=== PATIENT | male | born 1990 | race Caucasian/White ===

== ENCOUNTER → 2020-12-31 | Outpatient (CLI) | payer SELFPAY | LOC: M LABSMTC 09:52 | PROVIDERS: ATTEND Pediatrics | DX: Z20.822 Contact with and (suspected) exposure to COVID-19 (principal) ==

== ENCOUNTER → 2021-01-19 | Outpatient (CLI) | payer SELFPAY | LOC: M LABSMTC 12:03 | PROVIDERS: ATTEND Pediatrics | DX: Z11.52 Encounter for screening for COVID-19 (principal) ==

== ENCOUNTER → 2021-02-22 | Outpatient (CLI) | payer SELFPAY | LOC: M LABSMTC 11:58 | PROVIDERS: ATTEND Pediatrics | DX: Z20.822 Contact with and (suspected) exposure to COVID-19 (principal) ==

== ENCOUNTER → 2021-06-10 | Outpatient (CLI) | payer OTHER ==
--- NOTE | 2021-06-10 14:54 | REP ---
INDICATION: OLECRANON BURSITIS COMPARISON: None. TECHNIQUE: Four views right elbow. FINDINGS: There is no evidence of acute fracture, dislocation, or intrinsic bone disease.Moderate soft tissue swelling over the olecranon is most consistent with olecranon bursitis. IMPRESSION: Findings compatible with olecranon bursitis. <Electronically signed by Arvind Light > 06/10/21 [id number]
== END ==
LOC: M SOG 14:25
PROVIDERS: ATTEND Orthopaedic Surgery Sports Medicine
DX: M70.21 Olecranon bursitis, right elbow (principal)

== ENCOUNTER → 2022-05-02 | Outpatient (CLI) | payer BC, OTHER, SELFPAY | LOC: M SOG 09:07 | PROVIDERS: ATTEND Orthopaedic Surgery Hand Surgery | DX: M70.21 Olecranon bursitis, right elbow (principal) ==

== ENCOUNTER → 2022-05-16 | Outpatient (CLI) | payer BC, OTHER ==
[~2022-05-16] MED LIST: OXYC1TAB23 PO
== END ==
LOC: M LABSMTC 10:12
PROVIDERS: ATTEND Anesthesiology
DX: Z20.828 Contact with and (suspected) exposure to other viral communicable diseases (principal); Z11.59 Encounter for screening for other viral diseases

== ENCOUNTER 2022-05-18 12:25 | Day surgery (SDC) | payer BC ==
[~2022-05-18] VITALS: Ht 190.5 cm; Wt 126.5 kg
[2022-05-18] MEDS ORDERED: LR 1,000 ML IV SCH ×3 (12:35→17:45)
[2022-05-18] MEDS ORDERED: ceFAZolin SOD 2 GM in IV 1 EA IV ONE (12:55)
[2022-05-18] MEDS ORDERED: ceFAZolin SOD 1 GM in D5W MINI-BAG PLUS 50 ML IV ONE (12:55)
[2022-05-18] MEDS ORDERED: propofoL 200 MG/20 ML VIAL As Ordered ONE ×2 (13:39→15:16)
[2022-05-18] MEDS ORDERED: LIDOCAINE PRES-FREE 2% 10ML AMP As Ordered ONE (13:39)
[2022-05-18] MEDS ORDERED: MIDAZOLAM INJ 2MG/2ML VIAL (J2250 PER 1MG) As Ordered ONE (13:39)
[2022-05-18] MEDS ORDERED: fentaNYL 100 MCG/2 ML INJECTION As Ordered ONE ×2 (13:40→15:48)
[2022-05-18] MEDS ORDERED: ROCURONIUM BROMIDE 50 MG/5 ML VIAL As Ordered ONE (14:23)
[2022-05-18] MEDS ORDERED: BACITRACIN OINTMENT 30GM TUBE As Ordered ONE (15:17)
[2022-05-18] MEDS ORDERED: BUPIVACAINE HCL 0.25% 30ML VIAL As Ordered ONE (15:17)
[2022-05-18] MEDS ORDERED: dexameTHASONE 4 MG/ML 1ML VIAL (J1100 PER 1MG) As Ordered ONE (15:42)
[2022-05-18] MEDS ORDERED: ACETAMINOPHEN 1000MG 100ML IV BTL (OFIRMEV) (J0131 PER 10MG) As Ordered ONE (15:49)
[2022-05-18] MEDS ORDERED: KETOROLAC 60MG 2ML VIAL As Ordered ONE (15:49)
[2022-05-18] MEDS ORDERED: ONDANSETRON 4MG 2ML VIAL As Ordered ONE (15:49)
[2022-05-18] MEDS ORDERED: oxyCODONE 5MG TAB PO PRN ×2 (17:15→17:45)
[2022-05-18] MEDS ORDERED: ONDANSETRON 4MG 2ML VIAL IV PRN ×2 (17:15→17:45)
[2022-05-18] MEDS ORDERED: fentaNYL 100 MCG/2 ML INJECTION IV PRN ×2 (17:15→17:45)
[2022-05-18] MEDS ORDERED: MORPHINE 2 MG/ML 1ML VIAL IV PRN (17:45)
[2022-05-18 17:47] LABS: CRYSTALS, BODY FLUID URIC ACID (NONE SEEN); SOURCE, BODY FLUID CRYSTALS RT ELBOW
[2022-05-18 17:55] LABS: SOURCE, BODY FLUID RT ELBOW; SYNOVIAL FLUID COLOR PALE YELLOW (COLORLESS)
[2022-05-18 18:30] VITALS: BP 148/99
[2022-05-18] MEDS ORDERED: OXYC1TAB23 PO (19:36)
== END 2022-05-18 19:03 | disposition home or self-care (01) ==
LOC: M SDC 12:25
PROVIDERS: ATTEND Orthopaedic Surgery Hand Surgery
DX: M70.21 Olecranon bursitis, right elbow (principal); F17.220 Nicotine dependence, chewing tobacco, uncomplicated
CPT/HCPCS: 24105; 87070; 87075; 87205; 88300; 88304; 89051; 89060; J0131; J0690; J1100; J1885; J2250; J2405; J3010

== ENCOUNTER → 2022-08-26 | Outpatient (REF) | payer BC ==
[2022-08-26 13:45] LABS: SEMEN APPEARANCE OPAQUE (OPAQUE); SEMEN VISCOSITY LIQUID (LIQUID); SEMEN pH 8.5 (7.0-8.0); WBC CONCENTRATION <=1 M/ml (<=1 M/ml)
[2022-08-26 13:46] LABS: SPERM CONCENTRATION 56.6 M/ml (>=15.0)
== END ==
LOC: M LAB REF 13:12
PROVIDERS: ATTEND Physician Assistant
DX: Z31.41 Encounter for fertility testing (principal)

== ENCOUNTER → 2022-10-03 | Outpatient (REF) | payer BC ==
[2022-10-03 16:41] LABS: SEMEN APPEARANCE OPAQUE (OPAQUE); SEMEN VOLUME 1.6 ml (2.0-5.0)
[2022-10-03 16:42] LABS: SEMEN VISCOSITY LIQUID (LIQUID); WBC CONCENTRATION <=1 M/ml (<=1 M/ml)
== END ==
LOC: M LAB REF 16:30
PROVIDERS: ATTEND Physician Assistant
DX: N46.9 Male infertility, unspecified (principal)

== ENCOUNTER → 2022-10-11 | Outpatient (REF) | payer BC ==
[2022-10-11 12:34] LABS: BASO % 0.4 % (0.0-1.0); EOS # 0.2 10^3/uL (0.0-0.5); EOS % 2.2 % (0.0-3.0); HEMATOCRIT 47.8 % (42.0-52.0); HEMOGLOBIN 15.6 g/dl (13.5-17.5); LYMPH # 2.4 10^3/uL (1.5-5.0); LYMPH % 31.2 % (24.0-44.0); MEAN CORPUSCULAR HEMOGLOBIN 28.3 pg (27.0-33.0); MEAN CORPUSCULAR HGB CONC 32.6 g/dl (32.0-36.5); MEAN CORPUSCULAR VOLUME 86.8 fl (80.0-96.0); MONO # 0.6 10^3/uL (0.0-0.8); MONO % 8.1 % (2.0-8.0); NEUTROPHILS # 4.4 10^3/uL (1.5-8.5); NEUTROPHILS % 57.6 % (36.0-66.0); PLATELET COUNT, AUTOMATED 294 10^3/uL (150-450); RED BLOOD COUNT 5.51 10^6/uL (4.30-6.10); WHITE BLOOD COUNT 7.6 10^3/uL (4.0-10.0)
[2022-10-11 13:50] LABS: ALBUMIN 4.5 G/DL (3.2-5.2); ALT/SGPT 41 U/L (7.0-40); BILIRUBIN,TOTAL 0.7 MG/DL (0.3-1.2); BLOOD UREA NITROGEN 15 MG/DL (9-23); CARBON DIOXIDE LEVEL 25 MMOL/L (20-31); CHLORIDE LEVEL 103 MMOL/L (98-107); CHOLESTEROL LEVEL 201 MG/DL (<200); CHOLESTEROL RISK RATIO 5.02 (<5); CREATININE FOR GFR 1.14 MG/DL (0.70-1.30); GLOMERULAR FILTRATION RATE > 60.0 (>60); GLUCOSE, FASTING 112 MG/DL (60-100); NON-HDL-C 161 MG/DL; POTASSIUM SERUM 4.9 MMOL/L (3.5-5.1); SODIUM LEVEL 138 MMOL/L (136-145); TOTAL 25(OH) VITAMIN D 19.3 NG/ML (20.0-100.0); TOTAL PROTEIN 7.7 G/DL (5.7-8.2); TRIGLYCERIDES LEVEL 180 MG/DL (<150); URIC ACID 10.3 MG/DL (3.7-9.2)
== END ==
LOC: M WUC 09:22
PROVIDERS: ATTEND Physician Assistant
DX: E78.2 Mixed hyperlipidemia (principal); E55.9 Vitamin D deficiency, unspecified; M10.021 Idiopathic gout, right elbow

== ENCOUNTER 2024-04-06 13:56 | Emergency (ER) | payer BC ==
[~2024-04-06] VITALS: Ht 190.5 cm; Wt 125.5 kg
[2024-04-06] MEDS ORDERED: COLC0.6T47 (14:12)
[2024-04-06] MEDS ORDERED: IBUP200C28 PO (14:12)
[2024-04-06] MEDS: NITROGLYCERIN 0.4MG SUBL TABLET SL PRN (14:43)
[2024-04-06] MEDS ORDERED: ISOVUE-370 76% 100ML VIAL As Ordered ONE (14:43)
[2024-04-06 14:48] LABS: BASO % 0.3 % (0.0-1.0); EOS % 0.3 % (0.0-3.0); HEMATOCRIT 47.3 % (42.0-52.0); HEMOGLOBIN 16.4 g/dl (13.5-17.5); LYMPH # 1.6 10^3/uL (1.5-5.0); LYMPH % 10.7 % (24.0-44.0); MEAN CORPUSCULAR HEMOGLOBIN 28.6 pg (27.0-33.0); MEAN CORPUSCULAR HGB CONC 34.7 g/dl (32.0-36.5); MEAN CORPUSCULAR VOLUME 82.4 fl (80.0-96.0); MONO # 0.7 10^3/uL (0.0-0.8); NEUTROPHILS # 12.3 10^3/uL (1.5-8.5); NEUTROPHILS % 83.2 % (36.0-66.0); PLATELET COUNT, AUTOMATED 275 10^3/uL (150-450); RED BLOOD COUNT 5.74 10^6/uL (4.30-6.10); WHITE BLOOD COUNT 14.8 10^3/uL (4.0-10.0)
[2024-04-06 14:54] LABS: INR 1.09; PROTHROMBIN TIME 13.8 SECONDS (12.5-14.5)
[2024-04-06 15:03] LABS: THYROID STIMULATING HORMONE 1.042 uIU/ML (0.55-4.78)
[2024-04-06 15:13] LABS: ALBUMIN 4.7 G/DL (3.2-5.2); ALKALINE PHOSPHATASE 108 U/L (46-116); ALT/SGPT 63 U/L (7.0-40); AST/SGOT 53 U/L (<34); BILIRUBIN,DIRECT 0.2 MG/DL (<0.4); BILIRUBIN,TOTAL 0.8 MG/DL (0.3-1.2); BLOOD UREA NITROGEN 15 MG/DL (9-23); CALCIUM LEVEL 10.1 MG/DL (8.5-10.1); CARBON DIOXIDE LEVEL 23 MMOL/L (20-31); CHLORIDE LEVEL 105 MMOL/L (98-107); CPK CREATINE PHOSPHOKINASE 457 U/L (46-171); CREATININE FOR GFR 1.16 MG/DL (0.70-1.30); GLOMERULAR FILTRATION RATE > 60.0 (>60); GLUCOSE, FASTING 120 MG/DL (60-100); LIPASE 28 U/L (12-53); MB/CK RELATIVE INDEX 0.87 (< OR =4); POTASSIUM SERUM 5.1 MMOL/L (3.5-5.1); SODIUM LEVEL 139 MMOL/L (136-145); TOTAL PROTEIN 8.1 G/DL (5.7-8.2)
[2024-04-06] MEDS: diphenhydrAMINE 50MG/ML VIAL IV STA (15:19)
[2024-04-06] MEDS: methylPREDNISolone 125MG 2ML VIAL IV ONE (15:19)
[2024-04-06] MEDS: ASPIRIN 81MG CHEW TABLET PO ONE (15:31)
[2024-04-06 15:49] VITALS: BP 192/111
[2024-04-06] MEDS: NITROGLYCERIN 2% OINT 1 GM *U/D* PKT TOP ONE (15:49)
[2024-04-06 16:14] LABS: CK-MB VALUE MASS 7.9 NG/ML (<3.6)
[2024-04-06 16:18] LABS: MB/CK RELATIVE INDEX 1.79 (< OR =4)
[2024-04-06] MEDS ORDERED: HOME MED LIST COMPLETE! XX SCH (16:45)
[2024-04-06 16:55] LABS: PARTIAL THROMBOPLASTIN TIME 25.3 SECONDS (24.8-34.2)
[2024-04-06] MEDS: HEPARIN DRIP 25,000 UNITS in IV 1 EA IV SCH (16:59)
[2024-04-06] MEDS: HEPARIN SOD (PORCINE) 5000UNITS/ML 1ML VIAL/SYRINGE IV ONE (17:00)
[2024-04-06 17:15] VITALS: BP 157/87; TEMP 98.6; O2SAT 98
[2024-04-06] MEDS: MORPHINE 4 MG/ML 1ML VIAL IV PRN (17:23)
== END 2024-04-06 17:27 | disposition short-term general hospital (02) ==
LOC: M ED 13:56
DX: I21.4 Non-ST elevation (NSTEMI) myocardial infarction (principal); F10.10 Alcohol abuse, uncomplicated; Z88.2 Allergy status to sulfonamides; Z79.1 Long term (current) use of non-steroidal anti-inflammatories (NSAID)
CPT/HCPCS: 71045; 71275; 80047; 80048; 80076; 82550; 82553; 83690; 84443; 84484; 85025; 85610; 85730; 93005; 93041; 94760; 96374; 96375; 99285; J1200; J2919; Q9967

== ENCOUNTER → 2024-07-29 | Outpatient (REF) | payer BC ==
[~2024-07-29] MED LIST changes: +COLC0.6T47; +IBUP200C28 PO
[2024-07-29 19:01] LABS: CHOLESTEROL RISK RATIO 3.98 (<5); HDL CHOLESTEROL 45.9 MG/DL (>40); LDL CHOLESTEROL 96.9 MG/DL (<100); NON-HDL-C 137.1 MG/DL
== END ==
LOC: M LABDRWAD 17:19
PROVIDERS: ATTEND Internal Medicine Interventional Cardiology
DX: E78.2 Mixed hyperlipidemia (principal); Z95.1 Presence of aortocoronary bypass graft; I77.810 Thoracic aortic ectasia